=== PATIENT | male | born 1945 | race Caucasian/White ===

== ENCOUNTER 2016-07-04 06:01 | Emergency (ER) | payer MEDICARE ==
[~2016-07-04] VITALS: Ht 182.9 cm; Wt 104.5 kg
[~2016-07-04 06:01] MED LIST: ASAEC PO; ATRV10T PO; HYDR1TAB PO; IND10 PO; OMEP20TA86 PO
[2016-07-04 06:10] VITALS: BP 134/79; PULSE 111; RESP 13; O2SAT 95
--- NOTE | 2016-07-04 06:23 | ED.REPORT ---
HPI-General Illness Date of Service Jul 04, 2016 ED Provider: Jerrod Lewis MD The patient is a 70 year old male with history of hypertension who presents to the emergency department complaining of shortness of breath that has been worsening over the last 2 weeks. He has also noticed palpitations, fever, chills , and cough. He regularly feels palpitations but denies history of any known arrhythmia. He has been sick with cold-like symptoms over the last few days and is concerned he now has pneumonia or bronchitis. Nursing Notes Stated Complaint: HEART PALPITATION Chief Complaint: Dysrhythmia/Cardiac Nursing Notes Reviewed: Yes Allergies: Coded Allergies: bacitracin (Verified Allergy, Severe, 08/01/09) bacitracin zinc (Verified Allergy, Severe, 08/01/09) gramicidin D (Verified Allergy, Severe, 08/01/09) neomycin sulfate (Verified Allergy, Severe, 08/01/09) penicillin G (Verified Allergy, Severe, 08/01/09) polymyxin B (Verified Allergy, Severe, 08/01/09) polymyxin B sulfate (Verified Allergy, Severe, 08/01/09) Scheduled Aspirin-Expunged Drug, Do Not Renew! (Aspirin EC-Expunged Drug, Do Not Renew!) 325 Mg Tablet 1 PO DAILY Atorvastatin-Expunged Drug, Do Not Renew! (Atorvastatin-Expunged Drug, Do Not Renew!) 10 Mg Tablet 10 MG PO DAILY Azithromycin (Zithromax (Z-Doc)) 250 Mg Tablet 250 MG PO DIRECTED Take two tablets by mouth on day 1, then take one tablet daily on days 2 through 5. Omeprazole-Expunged Drug, Do Not Renew! (Omeprazole-Expunged Drug, Do Not Renew! ) 20 Mg Tablet.dr 20 MG PO DAILY Propranolol-Expunged Drug, Do Not Renew! (Propranolol-Expunged Drug, Do Not Renew!) 10 Mg Tab 5 MG PO BID Scheduled PRN Benzonatate (Tessalon Perle) 100 Mg Capsule 100 MG PO TID PRN PRN For Cough Hydrocod/APAP-Expunged, Do Not Renew! (VICODIN 5/500-Expunged Drug, Do Not Renew ) 1 Udtab Tablet 0.5-1 UDTAB PO Q4 PRN PRN General Time Seen by MD: 06:22 Chief Complaint Other (shortness of breath) Hx Obtained From: Patient Arrived By: Walk-in Sudden in Onset?: Yes Onset Occurred: More than a week ago... Symptom Duration: Since onset Severity: Current: Moderate Severity: Maximum: Moderate Recent Healthcare: No recent doctor visit, No recent hospitalization Similar Sx Previous: No Well's Criteria for PE Well's PE Score: 0-2 pts (low risk 3.6%) Past Medical History Past Medical History Hypertension Past Surgical History Skin graft TKA Family History Noncontributory Social History Alcohol Use: Denies alcohol use Drug Use: Denies drug use Other Social History: Local resident Ambulatory Status Independent Review of Systems Full Review of Systems Constitutional: Reports: Chills, Fever Respiratory: Reports: Non-productive cough, Shortness of breath Cardiovascular: Reports: Palpitations Complete sys rev & neg: except as marked. Physical Exam Vital Signs Vital Signs Date Time Temp Pulse Resp B/P Pulse Ox O2 Delivery O2 Flow Rate FiO2 07/04/16 07:17 93 14 127/77 94 Room Air 07/04/16 06:10 36.5 111 13 134/79 95 Room Air Initial VS: Reviewed Neck: Supple, Non-tender, Full range of motion Abdomen / GI: Soft, Non-tender, No guarding, No rebound, No distention Lymphatic: No lymphadenopathy Extremities: Vascular intact, Neuro intact, No swelling, No tenderness Skin: Warm, Dry, No cyanosis Neurologic: Alert, Oriented, Nonfocal Psychiatric: Mood/affect normal, Behavior normal, Normal thought content General/Constitutional: Awake, Alert, No acute distress, Cooperative Respiratory / Chest: Breath sounds = bilat, No respiratory distress, No rales, No rhonchi, No wheezing Coarse throughout with very mild scattered wheezing Cardiovascular: Heart rate NL, Regular rhythm, Heart sounds NL, No gallop, No murmurs, No rubs, Peripheral circulation NL, Pulses = bilaterally Interpretation & Diagnostics Lab Results Interpretation Result Diagram: 07/04/16 0617 07/04/16 0617 Test 07/04/16 06:17 White Blood Count 9.8th/mm3 (3.8-10.1) Red Blood Count 5.79mil/mm3 (4.40-5.80) Hemoglobin 17.0g/dL (13.8-17.2) Hematocrit 50.0% (41.0-50.0) Mean Corpuscular Volume 86.4fL (81-100) Mean Corpuscular Hemoglobin 29.4pg (27.0-35.0) Mean Corpuscular Hemoglobin Concent 34.0% (32.0-37.0) Red Cell Distribution Width 13.9% (12.3-15.4) Platelet Count 260bil/L (150-400) Neutrophils (%) (Auto) 49.1% (40-74) Lymphocytes (%) (Auto) 39.8% (14-46) Monocytes (%) (Auto) 7.2% (4-12) Eosinophils (%) (Auto) 3.3% (0-5) Basophils (%) (Auto) 0.3% (0-3) Hold Purple Top Tube Received (Received) Hold Blue Top Tube Received (Received) Sodium Level 143mEq/L (134-144) Potassium Level 4.3mEq/L (3.5-5.2) Chloride Level 103mEq/L (97-108) Carbon Dioxide Level 18mmol/L (18-29) Blood Urea Nitrogen 15mg/dL (8-27) Creatinine 0.92mg/dL (0.76-1.27) Estimat Glomerular Filtration Rate 87mL/min (>59) Glucose Level 126mg/dL (60-99) Calcium Level 9.4mg/dL (8.5-10.1) Magnesium Level 1.9mg/dL (1.6-2.6) Total Bilirubin 1.0mg/dL (0.0-1.2) Aspartate Amino Transf (AST/SGOT) 21U/L (0-50) Alanine Aminotransferase (ALT/SGPT) 21U/L (0-44) Alkaline Phosphatase 70U/L (25-160) Troponin T < 0.010ug/L (0.0-0.011) Total Protein 7.3g/dL (6.4-8.4) Albumin 4.1g/dL (3.4-5.0) Hold Red Top Tube Received (Received) Hold [place] Top Tube Received (Received) ECG Interpretation ECG Interpretation: Sinus tachycardia with a rate of [address] depression of less than 1 mm in V3-V6 No T wave abnormalities Inferior Q waves are present No prior available for comparison Time: 06:20 Interpreted by: ED physician X-Ray Chest Interpretation Chest Xray Interpretation: No infiltrate seen. View: Portable, 1 view Interpretation / Wet Read by: Interpret - Radiologist Re-Eval/Medical Decision Med Decision/Clinical Course In summary, the patient is a 70-year-old male with no significant past medical history other than smoking who presents to the emergency department with 2 weeks of persistent nonproductive cough in the setting of recent upper respiratory infection. He initially states that he has "racing heart" however later reports that this is his baseline. It is unclear exactly what he means by this as his heart rate is sinus and regular and he denies any history of atrial fibrillation or arrhythmia. Upon arrival, the patient is afebrile with stable vital signs and good oxygen saturation on room air. He has slightly coarse breath sounds throughout with mild wheezing. The patient was treated with a DuoNeb and reported symptom improvement. He remained with stable vital signs and no apparent distress. Chest x-ray was obtained and demonstrated slight hyperinflation and several regions of lung scarring though no convincing focal consolidation. There was no evidence of cardiomegaly or pulmonary edema. EKG was obtained and interpreted by myself as documented above. Laboratory studies reassuring as below: CBC unremarkable, CMP unremarkable, troponin negative At this time, the patient is relatively low risk for pulmonary embolism and his overall presentation is not consistent with PE. I do not feel the PE workup is indicated. Initial screening EKG and troponin are relatively unremarkable. The patient reports improvement after receiving nebulizer treatments. His overall presentation is most consistent with bronchitis/COPD. She was prescribed a course of azithromycin and provided with an albuterol inhaler and spacer. I do not feel that his symptoms are severe enough to warrant treatment with oral steroids. He will follow-up with his primary care physician in the coming week. Follow-up and return precautions were reviewed in detail the patient was discharged in good condition. Source of Hx: Old records Time of Eval: 07:58 Re-Evaluation/Progress Note: The patient is feeling better. Discussed plan for discharge. All questions were addressed. Counseled Regarding: Diagnosis, Lab results, Need for follow-up, When/why to return to ED Discharge & Departure Primary Impression: Bronchitis Additional Impressions: Tobacco abuse Cough Wheezing Palpitations Disposition: Home Discharge Condition All VS Reviewed: Yes Condition: Stable Patient Instructions: Acute Bronchitis (ED) Additional Instructions: Thank you for seeking care at the emergency room. It is difficult for us to make definitive diagnoses in the ED but we believe that you are experiencing symptoms related to bronchitis. Our primary goal today in the ED was to evaluate you for any life-threatening conditions. Your evaluation was reassuring. You will be discharged with a prescription for Tessalon pearls and azithromycin. Use the albuterol inhaler as directed. You should follow-up with your primary doctor in the next week. You should return to the ED immediately if you develop increased work of breathing, chest pain, fevers, vomiting, cough, lightheadedness, weakness or any other concerning signs or symptoms. Thank you for letting us partake in your care today. Scribe Attestation Portions of this note were transcribed by Gilda Torres. I, Dr. Lewis personally performed the history, physical exam and medical decision-making; I reviewed and confirmed the accuracy of the information in the transcribed note. Signed by: Lydia Turpin, 07/03/2015 and 0815. Jerrod Lewis MD Jul 04, 2016 06:23 Gilda Torres Jul 04, 2016 06:32
[2016-07-04 06:43] LABS: BASOPHILS % (AUTO) 0.3 % (0-3); EOSINOPHILS % (AUTO) 3.3 % (0-5); MONOCYTES % (AUTO) 7.2 % (4-12); Mean Corpuscular Hemoglobin 29.4 pg (27.0-35.0); Mean Corpuscular Volume 86.4 fL (81-100); NEUTROPHILS % (AUTO) 49.1 % (40-74); Platelet Count 260 bil/L (150-400)
[2016-07-04 07:17] VITALS: BP 127/77; PULSE 93; RESP 14; O2SAT 94
[2016-07-04 07:47] LABS: Magnesium 1.9 mg/dL (1.6-2.6)
[2016-07-04 07:49] LABS: TROPONIN T < 0.010 ug/L (0.0-0.011)
[2016-07-04] MEDS ORDERED: BENZ-12 PO (07:49)
[2016-07-04] MEDS ORDERED: Albuterol-Ipratropium 3 mL Inhalation Solution NEB ONE (07:50)
[2016-07-04] MEDS ORDERED: AZIT250T4 PO (07:52)
[2016-07-04] MEDS ORDERED: Albuterol HFA 60 Puff 8 Gm Inhaler INHALATION PRN (07:55)
[2016-07-04 08:34] VITALS: PULSE 89; RESP 16; O2SAT 96
--- NOTE | 2016-07-04 08:35 | DRSVH ---
PROCEDURE: X-RAY CHEST ONE VIEW, PORTABLE ([id number]) INDICATIONS: 70-year-old male with dysrhythmia. TECHNIQUE: One view of the chest was acquired. COMPARISON: [facility], , CHEST 1VW (PORTABLE), 12/30/2009, 19:35. [facility], , CHEST 1VW (PORTABLE), 07/31/2009, 21:27. [facility], , ABD ACUTE SERIES, 04/07, 19:29. FINDINGS: Surgical changes and devices: None. Lungs and pleura: No pleural effusions or pneumothorax. Lungs are clear. Mediastinum: Mediastinal contours appear normal. Heart size is normal. There is aortic atheroscler osis. Bones and chest wall: No suspicious bony lesions. There is thoracolumbar spine dextroscoliosis. Ove rlying soft tissues appear unremarkable. IMPRESSION: No acute cardiopulmonary disease. Dictated by: Sathya Vaughn M.D. on 07/04/2016 at 8:33 Approved by: Sathya Vaughn M.D. on 07/04/2016 at 8:34
[2016-07-04 09:24] VITALS: BP 116/81; PULSE 92; RESP 16; O2SAT 96
== END 2016-07-04 09:25 | disposition home or self-care (01) ==
LOC: SED 06:01
DX: J40 Bronchitis, not specified as acute or chronic (principal); R06.2 Wheezing; R00.2 Palpitations; R05 Cough; I10 Essential (primary) hypertension; Z72.0 Tobacco use; Z88.1 Allergy status to other antibiotic agents
CPT/HCPCS: 36415; 71010; 80053; 83735; 84484; 85025; 93005; 94640; 94664; 99285; J7620

== ENCOUNTER 2016-11-09 13:37 | Inpatient (IN) | payer MEDICARE ==
[~2016-11-09] VITALS: Ht 182.9 cm; Wt 105.0 kg
[~2016-11-09 13:37] MED LIST changes: +AZIT250T4 PO; +BENZ-12 PO
[2016-11-09 13:42] VITALS: BP 156/94; PULSE 89; RESP 20; O2SAT 99
--- NOTE | 2016-11-09 13:48 | ED.REPORT ---
HPI-Chest Pain 40 and Over Date of Service Nov 09, 2016 ED Provider: Rashi Oseguera MD A 71 year old male with a history of hypertension and high cholesterol presents to the ED complaining of chest pain. The pt began experiencing pain across his chest and radiating into his bilateral upper arms approximately 20 minutes prior to arrival while walking. This was accompanied by lightheadedness, dizziness, and mild difficulty breathing, and lasted for five minutes. The pt felt like he was "about to pass out" and had to hold onto a cabinet for balance. He denies nausea or vomiting, as well as any history of [place]. He has experienced two similar episodes in the last two weeks, both of which occurred during activity. The pt has a history of hypertension but has not taking his medication for the last week. He denies any recent heavy lifting. Nursing Notes Stated Complaint: CHEST PAIN,CANT FEEL ARMS,LIGHT HEADED,DIZZY Chief Complaint: Chest Pain Nursing Notes Reviewed: Yes Allergies: Coded Allergies: bacitracin (Verified Allergy, Severe, 11/09/16) bacitracin zinc (Verified Allergy, Severe, 11/09/16) gramicidin D (Verified Allergy, Severe, 11/09/16) neomycin sulfate (Verified Allergy, Severe, 11/09/16) penicillin G (Verified Allergy, Severe, 11/09/16) polymyxin B (Verified Allergy, Severe, 11/09/16) polymyxin B sulfate (Verified Allergy, Severe, 11/09/16) Scheduled Aspirin (Aspirin) 81 Mg Tablet 81 MG PO DAILY Atorvastatin (Lipitor) 10 Mg Tab 10 MG PO DAILY Propranolol HCl (Propranolol HCl) 10 Mg Tablet 5 MG PO BID General Time Seen by MD: 13:46 Chief Complaint Chest pain Hx Obtained From: Patient Arrived By: Walk-in Sudden in Onset?: Yes Onset Occurred: 16 - 30 minutes ago Symptom Duration: 1 - 15 minutes Recent Healthcare: No recent hospitalization, Recent doctor visit Similar Sx Previous: Yes Past Medical History Past Medical History Hypertension Pneumonia Arthritis High cholesterol Past Surgical History Skin graft TKA Family History Noncontributory Smoking History Former Smoker Social History Alcohol Use: Denies alcohol use Drug Use: Denies drug use Other Social History: Local resident Ambulatory Status Independent Review of Systems Review of Systems Note: mild difficulty breathing near syncope Respiratory: Denies: Non-productive cough Cardiovascular: Reports: Chest pain GI: Denies: Abdominal pain, Nausea, Vomiting Musculoskeletal: Denies: Back pain, Neck pain Neurologic: Reports: Dizziness, Lightheaded Complete sys rev & neg: except as marked. Physical Exam Initial Vital Signs Vital Signs (First) Date Time Temp Pulse Resp B/P Pulse Ox O2 Delivery O2 Flow Rate FiO2 11/09/16 13:42 36.4 89 20 156/94 99 Room Air Initial VS: Reviewed General/Constitutional: Awake, Alert Respiratory / Chest: Atraumatic, Breath sounds NL, Breath sounds = bilat, No respiratory distress Cardiovascular: Heart rate NL, Regular rhythm, Heart sounds NL Abdomen: Atraumatic, Soft, Non-tender Neck: Atraumatic, Supple, Full range of motion Back: Atraumatic, Full range of motion Lower Extremity / Pelvis / MS: Atraumatic, Full range of motion Skin: Atraumatic, Color NL, No rash, Warm, Dry Neurologic: Oriented X3, Speech NL, No motor deficits, No sensory deficits Psychiatric: Affect NL, Mood NL Head / Eyes: Atraumatic, Normocephalic, PERRL, EOMI ENT: Atraumatic, Airway patent, Mucous membranes moist Upper Extremity / MS: Atraumatic, Full range of motion Interpretation & Diagnostics Lab Results Interpretation Result Diagram: 11/10/16 0535 11/10/16 0535 Test 11/09/16 13:55 Neutrophils (%) (Auto) 47.1% (40-74) Lymphocytes (%) (Auto) 43.1% (14-46) Monocytes (%) (Auto) 6.9% (4-12) Eosinophils (%) (Auto) 2.3% (0-5) Basophils (%) (Auto) 0.4% (0-3) Hemoglobin A1c 7.2% (4.8-5.6) Total Bilirubin 0.4mg/dL (0.0-1.2) Aspartate Amino Transf (AST/SGOT) 29U/L (0-50) Alanine Aminotransferase (ALT/SGPT) 37U/L (0-44) Alkaline Phosphatase 80U/L (25-160) Total Protein 7.2g/dL (6.4-8.4) Albumin 4.0g/dL (3.4-5.0) Hold [place] Top Tube Received (Received) ECG Interpretation ECG Interpretation: normal sinus rhythm with a rate of [address] elevations Q waves in 3, aVF, , VII unchanged from previous dated 07/04/2016 Time: 13:47 Interpreted by: ED physician X-Ray Chest Interpretation Chest Xray Interpretation: IMPRESSION: No acute cardiopulmonary disease. Dictated by: Sathya Vaughn M.D. on 11/09/2016 at 13:31 Approved by: Sathya Vaughn M.D. on 11/09/2016 at 13:32 Interpretation / Wet Read by: Interpret - Radiologist Re-Eval/Medical Decision Med Decision/Clinical Course 71-year-old male history of hypertension, hypercholesterolemia, smoker presenting with chest pain 20 minutes prior to arrival. His circumflex first troponins negative. No acute changes on EKG though with questionable depressions in V5 and V6. Reviewed with public administration teacher recommended admission and trending. Admitted for ACS rule out. Heart score 5. Given Aspirin. Source of Hx: Old records Time of Eval: 14:24 Re-Evaluation/Progress Note: Pt rechecked, who is comfortable. Additional history is obtained. Consultation : Referral / Consult Name: Aidee Guardado MD Consulted With: Cardiology Call Returned at: 14:[address]: Agrees with eval, Agrees with plan Note: Spoke with Dr. Guardado, cardiology, regarding pt's case. Dr. Guardado agrees to review pt's records. Counseled Regarding: Diagnosis, Lab results Discharge & Departure Primary Impression: Chest pain Chest pain type: unspecified Qualified Code: R07.9 - Chest pain, unspecified Disposition: ADMITTED TO HOSPITAL Discharge Condition All VS Reviewed: Yes Condition: Stable [facility]errals: [facility] Scribe Attestation Portions of this note were transcribed by Roger Gill. I, Dr. Oseguera personally performed the history, physical exam and medical decision-making; I reviewed and confirmed the accuracy of the information in the transcribed note. Signed by: Lydia Frost, 11/09/16 and 3426. copies to: [facility] Rashi Oseguera MD Nov 09, 2016 13:48 ROGER GILL Nov 09, 2016 14:02 4.0g/dL (3.4-5.0) Hold [place] Top Tube Received (Received) ECG Interpretation ECG Interpretation: normal sinus rhythm with a rate of [address] elevations Q waves in 3, aVF, , VII unchanged from previous dated 07/04/2016 Time: 13:47 Interpreted by: ED physician X-Ray Chest Interpretation Chest Xray Interpretation: IMPRESSION: No acute cardiopulmonary disease. Dictated by: Sathya Vaughn M.D. on 11/09/2016 at 13:31 Approved by: Sathya Vaughn M.D. on 11/09/2016 at 13:32 Interpretation / Wet Read by: Interpret - Radiologist Re-Eval/Medical Decision Source of Hx: Old records Time of Eval: 14:24 Re-Evaluation/Progress Note: Pt rechecked, who is comfortable. Additional history is obtained. Consultation : Referral / Consult Name: Aidee Guardado MD Consulted With: Cardiology Call Returned at: 14:[address]: Agrees with eval, Agrees with plan Note: Spoke with Dr. Guardado, cardiology, regarding pt's case. Dr. Guardado agrees to review pt's records. Counseled Regarding: Diagnosis, Lab results Discharge & Departure Primary Impression: Chest pain Chest pain type: unspecified Qualified Code: R07.9 - Chest pain, unspecified Disposition: ADMITTED TO HOSPITAL Discharge Condition All VS Reviewed: Yes Condition: Stable [facility] Attestation Portions of this note were transcribed by Roger Gill. I, Dr. Oseguera personally performed the history, physical exam and medical decision-making; I reviewed and confirmed the accuracy of the information in the transcribed note. Signed by: Lydia Frost, 11/09/16 and 1825. copies to: [facility] Rashi Oseguera MD Nov 09, 2016 13:48 ROGER GILL Nov 09, 2016 14:02 All VS Reviewed: Yes Condition: Stable [facility] Att[facility] Portions of this note were transcribed by Roger Gill. IDr. Oseguera personally performed the history, physical exam and medical decision-making; I reviewed and confirmed the accuracy of the information in the transcribed note. Signed by: Lydia Frost, 11/09/16 and 140. copies to: [facility] Rashi Oseguera MD Nov 09, 2016 13:48 ROGER GILL Nov 09, 2016 14:02
[2016-11-09 14:08] LABS: BASOPHILS % (AUTO) 0.4 % (0-3); EOSINOPHILS % (AUTO) 2.3 % (0-5); MONOCYTES % (AUTO) 6.9 % (4-12); Mean Corpuscular Hemoglobin 29.5 pg (27.0-35.0); Mean Corpuscular Volume 88.1 fL (81-100); NEUTROPHILS % (AUTO) 47.1 % (40-74); Platelet Count 214 bil/L (150-400)
[2016-11-09 14:33] LABS: TROPONIN T < 0.010 ug/L (0.0-0.011)
--- NOTE | 2016-11-09 14:33 | DRSVH ---
PROCEDURE: X-RAY CHEST ONE VIEW, PORTABLE ([id number]) INDICATIONS: 71 year-old male with chest pain for 1.5 days. TECHNIQUE: One view of the chest was acquired. COMPARISON: [facility], CR, XR CHEST 1VW (PORTABLE), 07/04/2016, 6:32. [facility], CR, CHEST 1VW (PORTABLE), 12/30/2009, 19:35. [facility], CR, CHEST 1VW (PORTABLE), 07/31/2009, 21:27. FINDINGS: Surgical changes and devices: None. Lungs and pleura: No pleural effusions or pneumothorax. Lungs are clear. Mediastinum: Mediastinal contours appear normal. Heart size is normal. There is aortic atheroscler osis. Bones and chest wall: No suspicious bony lesions. Overlying soft tissues appear unremarkable. IMPRESSION: No acute cardiopulmonary disease. Dictated by: Sathya Vaughn M.D. on 11/09/2016 at 13:31 Approved by: Sathya Vaughn M.D. on 11/09/2016 at 13:32
[2016-11-09 14:38] LABS: Magnesium 1.8 mg/dL (1.6-2.6)
[2016-11-09] MEDS ORDERED: Ondansetron 2 mg/mL 2 mL Inj IVPUSH PRN ×2 (15:35→18:50)
[2016-11-09] MEDS ORDERED: Alum-Mag Hydrox-Simeth 30 mL Suspension PO PRN (15:35)
[2016-11-09 15:38] VITALS: BP 156/82; PULSE 98; RESP 14; O2SAT 97
[2016-11-09] MEDS ORDERED: PROP10TA8 PO (15:46)
[2016-11-09] MEDS ORDERED: ASPI-973 PO (15:46)
[2016-11-09] MEDS ORDERED: ATRV10T PO (15:55)
[2016-11-09 17:22] VITALS: BP 180/88; PULSE 66; RESP 18; O2SAT 99
[2016-11-09 18:10] VITALS: BP 167/86
--- NOTE | 2016-11-09 18:20 | NUR ---
admit pt transferred to [facility] via [facility]. pt transferred himself from [facility] to bed. pt states that he is in no pain, denies chest pain, denies SOB. Tele applied. Admit assessment done, in room.
[2016-11-09] MEDS ORDERED: Dextrose 10% 250 ML IV PRN (18:50)
[2016-11-09] MEDS ORDERED: Polyethylene Glycol (PEG) 17 Gm Powder PO PRN (18:50)
--- NOTE | 2016-11-09 19:04 | PCM.HPMED ---
Subjective Date of Service Nov 09, 2016 Primary Provider: Admitting Physician: Hansel Rincon Primary Care Physician: Tato Attending Physician: Hansel Rincon Chief Complaint: near syncope, chest pain History of Present Illness: 71 year old male with a history of hypertension and high cholesterol presents to the ED complaining of chest pain and near syncope. He had been in his usual of state of health until earlier today around noon time while at home he walked to his car and all off a sudden felt significantly lightheaded. He sat down and after a while he felt improved. He then drove to [place] and after dropping of a letter he walked back to his car at which time he felt significant pain in both his arms radiating across his chest. This lasted 5 minutes and his symptoms resolved before he drove himself to the ED. He has experienced two similar episodes in the last two weeks, both of which occurred during activity. The pt has a history of hypertension but has not been taking his medication for the last week. Review of Systems: Constitutional: Negative, except as otherwise mentioned in the history above. Ophthalmologic: Negative, except as otherwise mentioned in the history above. Cardiovascular: Negative, except as otherwise mentioned in the history above. Respiratory: Negative, except as otherwise mentioned in the history above. Gastrointestinal: Negative, except as otherwise mentioned in the history above. Genitourinary: Negative, except as otherwise mentioned in the history above. Musculoskeletal: Negative, except as otherwise mentioned in the history above. Neurological: Negative, except as otherwise mentioned in the history above. Psychiatric: Negative, except as otherwise mentioned in the history above. Hematologic/Lymphatic: Negative, except as otherwise mentioned in the history above. Allergic/Immunologic: Negative, except as otherwise mentioned in the history above. Allergies Coded Allergies: bacitracin (Verified Allergy, Severe, 11/09/16) bacitracin zinc (Verified Allergy, Severe, 11/09/16) gramicidin D (Verified Allergy, Severe, 11/09/16) neomycin sulfate (Verified Allergy, Severe, 11/09/16) penicillin G (Verified Allergy, Severe, 11/09/16) polymyxin B (Verified Allergy, Severe, 11/09/16) polymyxin B sulfate (Verified Allergy, Severe, 11/09/16) Home Medications Aspirin (Aspirin) 81 Mg Tablet 81 MG PO DAILY Propranolol HCl (Propranolol HCl) 10 Mg Tablet 5 MG PO BID Lipitor 10mg PO DAILY Exam Vital Signs & I/O Vital Sign- Last 8 Hours Date Time Temp Pulse Resp B/P Pulse Ox O2 Delivery O2 Flow Rate FiO2 11/09/16 18:10 167/86 11/09/16 17:22 36.9 66 18 180/88 99 Room Air 11/09/16 15:38 98 14 156/82 97 Room Air 11/09/16 13:42 36.4 89 20 156/94 99 Room Air Lab & Micro Results Laboratory Tests Test 11/09/16 13:55 White Blood Count 9.8th/mm3 (3.8-10.1) Red Blood Count 5.63mil/mm3 (4.40-5.80) Hemoglobin 16.6g/dL (13.8-17.2) Hematocrit 49.6% (41.0-50.0) Mean Corpuscular Volume 88.1fL (81-100) Mean Corpuscular Hemoglobin 29.5pg (27.0-35.0) Mean Corpuscular Hemoglobin Concent 33.5% (32.0-37.0) Red Cell Distribution Width 13.5% (12.3-15.4) Platelet Count 214bil/L (150-400) Neutrophils (%) (Auto) 47.1% (40-74) Lymphocytes (%) (Auto) 43.1% (14-46) Monocytes (%) (Auto) 6.9% (4-12) Eosinophils (%) (Auto) 2.3% (0-5) Basophils (%) (Auto) 0.4% (0-3) Sodium Level 143mEq/L (134-144) Potassium Level 3.9mEq/L (3.5-5.2) Chloride Level 107mEq/L (97-108) Carbon Dioxide Level 23mmol/L (18-29) Blood Urea Nitrogen 13mg/dL (8-27) Creatinine 1.15mg/dL (0.76-1.27) Estimat Glomerular Filtration Rate 67mL/min (>59) Glucose Level 151mg/dL (60-99) Calcium Level 9.6mg/dL (8.5-10.1) Magnesium Level 1.8mg/dL (1.6-2.6) Total Bilirubin 0.4mg/dL (0.0-1.2) Aspartate Amino Transf (AST/SGOT) 29U/L (0-50) Alanine Aminotransferase (ALT/SGPT) 37U/L (0-44) Alkaline Phosphatase 80U/L (25-160) Troponin T < 0.010ug/L (0.0-0.011) Total Protein 7.2g/dL (6.4-8.4) Albumin 4.0g/dL (3.4-5.0) Hold Beckham Top Tube Received (Received) Result Diagram: 11/09/16 1355 11/09/16 1355 PMH Hypertension Arthritis High cholesterol Borderline diabetes Surgical History Skin graft TKA Family History Father with CO in his 50's Social History Hx Alcohol Use: Yes ("occasional") Hx Substance Use: No Hx Tobacco Use: Yes Smoking Status: Former Smoker (quit about one year ago) Exam Vital Signs Vital Sign - Last Date Time Temp Pulse Resp B/P Pulse Ox O2 Delivery O2 Flow Rate FiO2 11/09/16 18:10 167/86 11/09/16 17:22 36.9 66 18 99 Room Air Lab and Diagnostics Result Diagram: 11/09/16 1355 11/09/16 1355 X-Rays, CTs and MRIs Date of Service: 11/09/16 1342 PROCEDURE: X-RAY CHEST ONE VIEW, PORTABLE ([id number]) IMPRESSION: No acute cardiopulmonary disease. Dictated by: Sathya Vaughn M.D. on 11/09/2016 at 13:31 Approved by: Sathya Vaughn M.D. on 11/09/2016 at 13:32 12-lead ECG NSR @ [address] elevation/depression Assessment & Plan 71 year old male with a history of hypertension and high cholesterol presents to the ED complaining of chest pain and near syncope. # Acute chest pain, present on admission. - Tele - Rule out CO by cycling cardiac enzymes - ASA daily - Lipitor daily - Check fasting lipid panel - Echo - Stress test in am if CO ruled out # Hypertension - Continue with home dose Propranolol and titrate as needed # Reported borderline diabetes - ISS - Check HgA1C # Hyperlipidemia - Continue Lipitor - Fasting lipid panel # Acute near syncope - Workup as noted above Expected length of hospital stay is less than 2 midnights GI Prophylaxis: Not indicated VTE Prophylaxis: Sub-Q Heparin (Unfractionated) Resuscitation Status: CPR: Attempt Resuscitation (discussed and verified with patient) Time spent 60 min Hansel Rincon Nov 09, 2016 19:04
[2016-11-09 20:00] VITALS: PULSE 72
[2016-11-09 20:41] LABS: APPEARANCE,URINE CLEAR (CLEAR,HAZY); COLOR,URINE YELLOW (YELLOW); OCCULT BLOOD,URINE NEGATIVE (NEGATIVE); UROBILINOGEN,URINE NORMAL (NORMAL)
[2016-11-09 20:46] VITALS: BP 124/67; PULSE 65; RESP 18; O2SAT 98
[2016-11-09] MEDS: Insulin Human REGular 300 Unit/3 mL Inj SUBQ SCH (21:49)
[2016-11-10] VITALS (7 sets, daily range): BP systolic 126–172; BP diastolic 69–87; PULSE 55–67; RESP 18; O2SAT 96–100
[2016-11-10] MEDS: Heparin 5,000 Unit/mL Inj SUBQ SCH ×2 (01:23→08:38)
[2016-11-10 05:57] LABS: Mean Corpuscular Hemoglobin 29.2 pg (27.0-35.0); Mean Corpuscular Volume 87.5 fL (81-100)
[2016-11-10 06:17] LABS: INR 0.97 ratio
[2016-11-10 06:18] LABS: Magnesium 1.7 mg/dL (1.6-2.6)
[2016-11-10] MEDS: Insulin Human REGular 300 Unit/3 mL Inj SUBQ SCH ×4 (07:30→20:24)
--- NOTE | 2016-11-10 09:07 | NUR ---
Social Work-initial assessment/ readiness for discharge: Data:See initial assessment. Pt is a 71 y/o male who was admitted on 11/09/16 for chest pain per H&P. Pt's insurance is [employer] and PCP is not listed. EMR reviewed. RIP met with pt at bedside to discuss discharge planning, SW role explained. Pt is alert and oriented x3. Pt reside sat home alone in a single level home where he remains independent with ADls. Pt does not use any DME and drives. Pt has had HH in the past, post knee surgery, but cannot remember the name. Pt has no SNF history. Pt has no joint terminal attack controller care insurance or VA benefits. SW discussed DPOA/ advanced directive, pt confirms he has not completed this and is not interested in any information at this time. RIP discussed lack of PCP, pt states he has been assigned one, but his appointment is not until December. Pt states his friend Regulo will provide transport home when medically stable and declined SW calling his friend. Per RN notes, pt has been up independent in his room. SW provided phone number and plan on white board in room. No anticipated discharge needs. SW will continue to follow if needs arise. Assessment:Pt who is independent at baseline. Plan:Pt to discharge home when medically stable via POV. No anticipated discharge needs. SW will continue to follow if needs arise. DONNA Webb Addendum: 11/10/16 at 0912 by ELISA GALO Amended: Links added.
[2016-11-10] MEDS ORDERED: Heparin 25K Unit/500mL 0.45 NS 25,000 UNIT in IV Premix 1 EACH IV SCH (12:15)
--- NOTE | 2016-11-10 13:56 | NUR ---
Case Management: IMM delivered and explained to patient. Signed original placed in chart. Copy left at bedside. Ivonne Hdez RN
--- NOTE | 2016-11-10 15:01 | PCM.PNMED ---
Subjective Date of Service Nov 10, 2016 Subjective Denies any new issues/complaints. no further CP. No SOB Exam Vital Signs Vital Sign - Last Date Time Temp Pulse Resp B/P Pulse Ox O2 Delivery O2 Flow Rate FiO2 11/10/16 14:45 36.4 59 18 172/85 96 Room Air Intake and Output 11/09/16 11/09/16 11/10/16 Cumulative From/Thru 15:00 23:00 07:00 11/09/16 13:42 - 11/10/16 06:37 Intake Total 320 ml 350 ml 670 ml Output Total 775 ml 775 ml Balance 320 ml -425 ml -105 ml Intake Oral 320 ml 350 ml 670 ml Output Urine Total 775 ml 775 ml General: Alert, Oriented X3, Cooperative, No Acute Distress Head: Normal Eyes: Scleral Anicteric Nose: Mucous Membr Moist/[place] Mouth: Mucous Membr Moist/[place] Neck: Supple Chest & Lungs: Clear to auscultation & percussion Cardiovascular: Regular Rate/Rhythm Pulses: NL carotid, radial, femoral, DP, PT Abdomen: Non-tender, Non-distended, Normoactive bowel tones, Soft Extremities: No cyanosis/clubbing/edma bilat Neurological: Grossly Neurologically Intact, Normal Speech IVs and Medications Medications Reviewed: Medications were reviewed in detail Lab and Diagnostics Result Diagram: 11/10/16 0535 11/10/16 0535 X-Rays, CTs and MRIs Date of Service: 11/09/16 1342 PROCEDURE: X-RAY CHEST ONE VIEW, PORTABLE ([id number]) IMPRESSION: No acute cardiopulmonary disease. Dictated by: Sathya Vaughn M.D. on 11/09/2016 at 13:31 Approved by: Sathya Vaughn M.D. on 11/09/2016 at 13:32 12-lead ECG NSR @ [address] elevation/depression Assessment & Plan 71 year old male with a history of hypertension and high cholesterol presents to the ED complaining of chest pain and near syncope. # Acute NSTEI. present on admission - Tele - Trop peaked at 0.056 on 11/09 and now back to normal - ASA daily - Lipitor daily - Followup pending Echo - Cardiology consulted this morning. Will followup with recs - Stress test cancelled - Start Heparin drip - Tentative plan is for cath in am # Hypertension. Poorly controlled - Continue with home dose Propranolol and titrate as needed - Will start low dose Lisinopril # Reported borderline diabetes - ISS - HgA1C 7.2 # Hyperlipidemia - Continue Lipitor - Fasting lipid: Chol 193, LDL 116 # Acute near syncope - Workup as noted above Dispo: 2-3 days GI Prophylaxis: Not indicated VTE Prophylaxis: Sub-Q Heparin (Unfractionated) Resuscitation Status: CPR: Attempt Resuscitation (discussed and verified with patient) Hansel Rincon Nov 10, 2016 15:01
--- NOTE | 2016-11-10 15:32 | CONS ---
[address] [address] CONSULTATION REPORT PATIENT: DOUG HERNANDEZ : 1945 MR#: [id number] ADMIT: 11/09/2016 JOB ID: [id number] DATE OF SERVICE: 11/10/2016 CARDIOLOGY CONSULTATION: CHIEF CONCERN: Hospital team to consult on this patient given elevated troponin. HISTORY OF PRESENT ILLNESS: The patient is a 71-year-old man with past medical history significant for hypertension and hyperlipidemia. He tells me that over the past couple of months he has been having intermittent lightheaded spells. He says, in fact, he was seen here in the ED after one of these episodes. He was evaluated and was sent home. With this current event, he was walking along where he suddenly felt another episode of lightheadedness. He thought he might pass out as he also developed a pain rate coming from his right to his left arm. This was short-lived and resolved, but he went to the ED again. In the ED he had an initial negative troponin. He had an EKG that looked very similar to previous EKGs. Since he has been admitted, his troponins have gone up from 0.014 to 0.056. He is not complaining of any chest pain, lightheadedness, dizziness or increased shortness of breath at this time. In fact he tells me that he is hungry. Other studies performed in the ED included a chest x-ray that showed no acute cardiopulmonary disease. PAST MEDICAL HISTORY/PROBLEM LIST: 1. History of hypertension. 2. Hyperlipidemia. HOME MEDICATIONS: Include: 1. Aspirin 81 mg a day. 2. Propranolol 10 mg tablets, 5 mg b.i.d. 3. Lipitor 10 mg a day. ALLERGIES: Are multiple including BACITRACIN, NEOMYCIN, PENICILLIN G, POLYMYXIN. SOCIAL HISTORY: He quit smoking about a year ago. Occasional alcohol use. FAMILY HISTORY: Father had TN in his 50s. REVIEW OF SYSTEMS: Overall health: No fevers, chills, night sweats, or weight loss. GI: No problems with ulcers or blood in his stool. : No dysuria, hematuria. Pulmonary: No problems with lungs. No increased shortness of breath. He might have felt a little bit of short of breath with this event yesterday. Endocrine: No heat or cold intolerance. Cardiac: Per HPI. He says he has episodes where he will feel his heart goes racing. Sometimes this is at night. He cannot recall if his heart was racing with this episode, however. Skin: No breakdown appreciated. Neuro: No chronic headaches. Heme: No easy bruising or bleeding. Musculoskeletal: He has some neck stiffness right now. Psych: No acute issues. ENT: No difficultly swallowing. No sore throat. All review of systems in a 12-point review of systems are negative. PHYSICAL EXAMINATION: Blood pressure is 156/76, heart rate is 56. He is afebrile. Sats are 99% on room air. General: In no acute distress. Speaking in full sentences without pressured breath. Head and neck examination: Normocephalic, atraumatic. Neck: I do not appreciate obvious JV distention. No obvious carotid bruits appreciated. Heart examination: Regular rate and rhythm without murmurs, gallops, rubs appreciated. Lungs sound clear anteriorly. Abdomen: Soft. Back: no CVA TTP Extremities: Warm, no appreciable edema, 1-2+ distal pulses. Skin without breakdown appreciated. Neuro: Alert and oriented x3. Gait is not tested. Psych: Appropriate mood and affect. ENT: Missing teeth front but mucous membranes moist. Ophtho: Vision grossly intact. LABORATORY AND DIAGNOSTIC STUDIES: EKG shows sinus rhythm with occasional PAC. There are some nonspecific ST changes seen which were seen on a previous EKG. LABORATORIES: Show a troponin is now point going from 0.014 to 0.056. Sodium 141, potassium 4.1, respectively. BUN and creatinine 14 and 0.82. Triglycerides 235, LDL 116, HDL 47. Hematology shows a white count 8.7, H and H 15.9 and 47.7, platelets of 200,000. A chest x-ray, as noted. IMPRESSION: The patient has had intermittent lightheaded spells over the past couple of months. He was seen in the ED back in June. Apparently at that time they thought he was complaining of shortness of breath. He was given treatment for bronchitis at that time. EKG looked about the same at that time as well. With his current admission, he developed some arm discomfort that radiated from the right to the left. This was transient in nature and was associated possibly with some increased shortness of breath but nothing significant. No diaphoresis, nausea, vomiting. He did not notice that he had any palpitations at the time. PLANS: 1. Until we sort things out, I think we should put him on a heparin drip. Continue him on aspirin and statin. He is on a beta cosme. 2. Will get an echocardiogram to evaluate LV function, look for wall motion abnormalities and also to look at the right ventricle given he had near syncope. 3. It is possible that he may have being having arrhythmias which precipitated the symptoms and led to the transient episode of chest pain. The echocardiogram will be helpful as well as further monitoring. 4. Also we need to consider pulmonary embolism as a cause of the syncopal event although speaking with him he said he has had some intermittent dizziness for the past couple of months. I spent 35 minutes reviewing the patient's chart, discussing the case with the family and the patient, making recommendations. IMTIAZ
[2016-11-10] MEDS: Alum-Mag Hydrox-Simeth 30 mL Suspension PO PRN (15:44)
--- NOTE | 2016-11-10 15:59 | DRSVH ---
[facility] [address] [place] [address] Echocardiogram Report Name: DOUG HERNANDEZ Date: 11/10/2016 Height: 72 in Hospital Exam Location: [facility] Weight: 235 lb Gender: Male BSA: 2.3 m2 : 1945 Age: 71 yrs BP: 145/77 mm Hg Reason For Study: Chest pain Ordering Physician: [facility] Performed By: Gray Shell Referring Physician: BENITO CHAVEZ Interpretation Summary 1. Mildly dilated left ventricle with mildly increased wall thickness and an estimated EF of 50% 2. Grossly normal right ventricular size with low normal systolic function. 3. No evidence for significant valvular pathology There is no old study for comparison Procedure: A two-dimensional transthoracic echocardiogram with color flow and Doppler was performed. The study quality was technically adequate. A contrast injection of Definity was performed to improve assessment of LV function. There is no prior echocardiogram noted for this patient. Left Ventricle: The left ventricle is mildly dilated. There is mild concentric left ventricular hypertrophy. The estimated EF is 50%. Possible hypokinesis of the distal anterior septum. Right Ventricle: The right ventricle is grossly normal size. Right ventricular systolic function is at the lower limits of normal. Atria: The left atrium is borderline dilated. Right atrial size is normal. There is no Doppler evidence for an interatrial shunt. Mitral Valve: The leaflets appear thin with normal excursion. There is mild to moderate mitral regurgitation. Aortic Valve: The aortic valve is trileaflet. The aortic valve opens well. No aortic regurgitation is present. Tricuspid Valve: The tricuspid valve is normal. Pulmonary artery pressures cannot be estimated because of the lack of a measurable TR jet velocity. Pulmonic Valve: The pulmonic valve is not well seen, but is grossly normal. There is mild to moderate pulmonic regurgitation. Great Vessels: The aortic root is normal size. The dimensions of the ascending aorta are normal. The IVC is of normal diameter and collapses greater than 50% with a sniff. This suggests a low right atrial pressure of 3 mm Hg. Pericardium/ Pleura There is no pericardial effusion. There is no pleural effusion. MMode/2D Measurements & Calculations LVIDd LA A2 area RA long axis: 5.3 cm LVOT diam: 2.3 cm : 6.0 cm AoV Openin.6 cm LVIDs RA area: 18.8 cm Ao root diam: 3.5 cm : 5.5 cm LA A4 area RA vol: 56.8 ml asc Aorta Diam: 3.2 cm FS: 8.9 % RA : 24.9 ml/m2 EPSS: 1.5 cm LA length (vol) IVSd: 1.1 cm LVPWd LA vol: 73.9 ml : 1.2 cm LA vol index : 32.4 ml/m2 LVAd ap4 LVAd ap2 LV isaac. diameter/BSA LV sys. diameter/BSA : 24.6 2m : 18.0 cm (cm/m^2): 2.6 (cm/m^2): 2.4 LVLd ap2: 6.2 cm EDV(MOD-sp2) EDV(sp2-el) ESV(MOD-sp2) EF(MOD-sp2) TAPSE : 1.5 cm Doppler Measurements & Calculations Ao V2 max: 117.8 cm/sec MV E max shilo MV E/A: 0.54 PA V2 max Ao max P.6 mmHg : 29.8 cm/sec Med Peak E' Shilo : 73.3 cm/sec Ao mean P.2 mmHg MV A max shilo PA mean PG LVOT Max Shilo : 55.2 cm/sec E/E' med: 8.3 : 1.2 mmHg : 55.2 cm/sec Lat Peak E' Shilo FRANKLIN(I,D): 1.9 cm sev ratio: 0.46 E/E' lat: 8.6 E/e' average: 8.4 MV dec time: 0.30 sec Ao V2 mean LV V1 max PG PA V2 mean : 86.1 cm/sec : 53.2 cm/sec Ao V2 VTI LV V1 VTI: 11.6 cmPA pr(Accel) : 28.9 mmHg FRANKLIN(V,D): 2.0 cm2 FRANKLIN indexed to BSA (cm^2/m^2): 0.85 Reading Physician:03:58 PM
--- NOTE | 2016-11-10 17:53 | NUR ---
Cardiac Near syncope with chest pain admission, chest pain HS with correlating trop levels. Cardiology consult. Heparin gtt per cardiac protocol initiated. Plan is for hearth cath in AM. Cardiology planning on returning in AM for consent.
--- NOTE | 2016-11-10 20:00 | DRSVH ---
PROCEDURE: CT ANGIO CHEST PULMONARY EMBOLISM ([id number]) INDICATIONS: 71 year-old man with chest pain. TECHNIQUE: After the administration of intravenous contrast, 2 mm thick sections acquired from the pulmonary api raf to the posterior costophrenic angles. 3-dimensional maximum intensity projection (MIP) coronal a nd sagittal reformats were then acquired through the thorax. For radiation dose reduction, the follo wing was used: automated exposure control, adjustment of mA and/or kV according to patient size. COMPARISON: [facility] , CT, CHEST W/O CONTRAST, 01/20/2010, 7:59. [facility], CT, CHEST ANGIO-PE, 07/31/2009, 23:36. FINDINGS: Image quality: Excellent. Pulmonary arteries: Pulmonary arteries are normal in size, and demonstrate no intraluminal filling d efects to suggest central pulmonary embolism. Lungs and pleura: There is a 9 mm groundglass nodule in the right minor fissure (series 5 image 28), unchanged in size. A 9 mm nodule in the left upper lobe (series 5 image 15) appears slightly increas ed in size (previously measured 6 mm on 01/20/2010). No pleural effusions or pneumothorax. Central an d peripheral airways are patent. Mediastinum: Heart size is normal, without pericardial effusion. There is a 1 cm precarinal lymph no de, and a 1.5 cm right hilar lymph node; both are unchanged in size compared to 07/31/2009. Thoracic aorta is normal in caliber and enhancement. Esophagus is normal in caliber, without hiatal hernia. Bones and chest wall: No suspicious bony lesions. Ribs and thoracic spine appear intact throughout. Thyroid gland is normal. No axillary or supraclavicular adenopathy. Abdomen: Visualized upper abdominal solid organs appear normal in the early arterial phase of enhanc ement. Note is made of cholecystectomy. IMPRESSION: 1. No evidence for central pulmonary embolism. 2. Stable in size of 9 mm nodule in the right major fissure. 3. Slight interval enlargement of a left upper lobe nodule. Given very low rate growth (from 6 mm on 01/20/2010 to 9 mm on 11/10/2016), a benign etiology is still favored. 4. Mildly enlarged mediastinal and right hilar lymph nodes are stable, most likely reactive. Dictated by: Angeline Tovar M.D. on 11/10/2016 at 19:45 Approved by: Angeline Tovar M.D. on 11/10/2016 at 19:58
[2016-11-10] MEDS: Heparin 5,000 Unit/mL Inj IVPUSH PRN (20:15)
[2016-11-11] VITALS (12 sets, daily range): BP systolic 110–164; BP diastolic 66–83; PULSE 50–80; RESP 16–20; O2SAT 95–99
[2016-11-11] MEDS: Heparin 5,000 Unit/mL Inj IVPUSH PRN (03:18)
--- NOTE | 2016-11-11 05:53 | NUR ---
Heparin gtt Heparin gtt infusing per protocol. non-therapeutic this shift. no s/s of bleeding. patient denies chest pain. patient has been NPO since Midnight for possible stress test in am. beta-cosme held over night. will continue to monitor.
[2016-11-11] MEDS: Insulin Human REGular 300 Unit/3 mL Inj SUBQ SCH ×4 (07:30→20:48)
--- NOTE | 2016-11-11 08:40 | NUR ---
DC heparin drip Per Dr Guardado's order this RN stopped and discontinued heparin drip.
--- NOTE | 2016-11-11 10:27 | NUR ---
Bowel Movements Pt stated that his last BM was 11/08/16 and that it was normal for him to go q3-4d. This RN offered him a stool softener but pt refused.
--- NOTE | 2016-11-11 11:30 | NUR ---
pt off unit patient off unit for st. no s/s of distress at time of transfer Addendum: 11/11/16 at 1418 by LEYLA STORY RN patient back on unit at 1345. Pt was placed in room but nobody contacted this RN or LANDFILL GRADER when pt returned. pt denies any cp
--- NOTE | 2016-11-11 15:02 | PCM.PNMED ---
Subjective Date of Service Nov 11, 2016 Subjective Denies any new issues/complaints. no further CP. No SOB Exam Vital Signs Vital Sign - Last Date Time Temp Pulse Resp B/P Pulse Ox O2 Delivery O2 Flow Rate FiO2 11/11/16 10:26 36.4 62 20 164/68 98 Room Air Intake and Output 11/10/16 11/10/16 11/11/16 Cumulative From/Thru 15:00 23:00 07:00 11/09/16 13:42 - 11/10/16 19:24 Intake Total 200 ml 870 ml Output Total 475 ml 1250 ml Balance -275 ml -380 ml Intake Oral 200 ml 870 ml Output Urine Total 475 ml 1250 ml Exam General: Alert, Oriented X3, Cooperative, No Acute Distress Head: Normal Eyes: Scleral Anicteric Nose: Mucous Membr Moist/Loco Mouth: Mucous Membr Moist/Loco Neck: Supple Chest & Lungs: Clear to auscultation bilat Cardiovascular: Regular Rate/Rhythm Pulses: NL carotid, radial, femoral, DP, PT Abdomen: Non-tender, Non-distended, Normoactive bowel tones, Soft Extremities: No cyanosis/clubbing/edema bilat Neurological: Grossly Neurologically Intact, Normal Speech IVs and Medications Medications Reviewed: Medications were reviewed in detail Lab and Diagnostics Result Diagram: 11/11/16 0230 11/10/16 0535 X-Rays, CTs and MRIs Date of Service: 11/09/16 1342 PROCEDURE: X-RAY CHEST ONE VIEW, PORTABLE ([id number]) IMPRESSION: No acute cardiopulmonary disease. Dictated by: Sathya Vaughn M.D. on 11/09/2016 at 13:31 Approved by: Sathya Vaughn M.D. on 11/09/2016 at 13:32 Date of Service: 11/10/16 1835 PROCEDURE: CT ANGIO CHEST PULMONARY EMBOLISM ([id number]) IMPRESSION: 1. No evidence for central pulmonary embolism. 2. Stable in size of 9 mm nodule in the right major fissure. 3. Slight interval enlargement of a left upper lobe nodule. Given very low rate growth (from 6 mm on 01/20/2010 to 9 mm on 11/10/2016), a benign etiology is still favored. 4. Mildly enlarged mediastinal and right hilar lymph nodes are stable, most likely reactive. Dictated by: Angeline Tovar M.D. on 11/10/2016 at 19:45 Approved by: Angeline Tovar M.D. on 11/10/2016 at 19:58 12-lead ECG NSR @ [address] elevation/depression Cardiac Echo Impressions Date of Service: 11/10/16 184 Echocardiogram Report Interpretation Summary 1. Mildly dilated left ventricle with mildly increased wall thickness and an estimated EF of 50% 2. Grossly normal right ventricular size with low normal systolic function. 3. No evidence for significant valvular pathology There is no old study for comparison Reading Physician:03:58 PM Assessment & Plan 71 year old male with a history of hypertension and high cholesterol presents to the ED complaining of chest pain and near syncope. # Acute NSTEMI. present on admission - Tele - Trop peaked at 0.056 on 11/09 and now back to normal - ASA daily - Lipitor daily - Echo unremarkable - CTA without PE - Appreciate cardiology consult. Will followup with recs - Stress test per cardiology recs # Hypertension. Poorly controlled - Continue with home dose Propranolol and titrate as needed - Will start low dose Lisinopril # Reported borderline diabetes - ISS - HgA1C 7.2 # Hyperlipidemia - Continue Lipitor - Fasting lipid: Chol 193, LDL 116 # Acute near syncope - Workup as noted above Dispo: 1-2 days pending stress test and improved BP control GI Prophylaxis: Not indicated VTE Prophylaxis: Sub-Q Heparin (Unfractionated) Resuscitation Status: CPR: Attempt Resuscitation (discussed and verified with patient) Hansel Rincon Nov 11, 2016 15:02
--- NOTE | 2016-11-11 15:52 | NUR ---
PSTV, VTach Per tele pt had a 10 sec run of PSVT and then 22 beats of VTach. Patient in the middle of having a BM. Pt denied chest pain and stated that he felt a little dizzy. Paged . Awaiting orders/response Addendum: 11/11/16 at 1558 by LEYLA STORY RN reassessed pt who stated that he felt dizzy and nauseated and like his heart was beating fast. tele the notified this RN that hr was 190s-200s. Ordered stat ekg. still waiting for Addendum: 11/11/16 at 1607 by LEYLA STORY RN VS: BP 149/80 P 71 bg 179 Addendum: 11/11/16 at 1739 by LEYLA STORY RN Spoke with Dr Guardado and administered 25mg PO Lopressor
[2016-11-11] MEDS ORDERED: Amiodarone 150 mg/100 mL D5W IV ONE (18:20)
--- NOTE | 2016-11-11 18:25 | NUR ---
TRANSFER TO [facility] PT TRANSFERED TO [facility] TO ROOM 2012. MEDICATIONS AND PTS BELONGINGS BROUGHT DOWN. REPORT GIVEN TO CT MICHAELS RN. NO S/S OF DISTRESS AT TIME OF TRANSFER
[2016-11-11] MEDS ORDERED: Amiodarone 360 mg/200 mL D5W IV ONE (18:30)
--- NOTE | 2016-11-11 18:32 | NUR ---
Arrival to room 2011 Pt arrived to room 2011. Denies chest pain. No reported dizziness. Transferred to bed with steady gait. SR with PACs per quality assurance monitor body, HR 60s. Normotensive. Sp02 >92% on room air. Pt oriented to room and call light. Plan of care reviewed. Will continue to monitor.
[2016-11-11] MEDS ORDERED: Amiodarone 150 mg/100 mL D5W Premix IV ONE (18:34)
[2016-11-11] MEDS ORDERED: IV Premix 1 EACH IV ONE (18:34)
--- NOTE | 2016-11-11 20:19 | DRSVH ---
PROCEDURE: 1 DAY PHARMACOLOGICAL STRESS TEST INDICATIONS: CHEST PAIN. COMPARISON: None. Radiopharmaceutical: Stress dose 32.6 mCi of technetium 99m tetrofosmin Rest dose 11.1 mCi of technetium 99 tetrofosmin Patient presentation: Patient is a 71-year-old man with near syncope in the setting of hyperlipidemia and family history of heart disease FINDINGS: Pharmacologic stress test: Following informed consent Lexiscan was infused per protocol. Patient dev eloped lightheadedness, dyspnea and upset stomach. Patient developed short runs of regular narrow com plex tachycardia consistent with atrial tachycardia. Patient developed occasional PACs. Patient devel oped ectopic atrial rhythm with inverted P waves in inferior leads. No significant ST segment changes . RAW data: Normal myocardial tracer uptake. Lung heart ratio is normal. Quantitative gated SPECT: At peak stress ejection fraction is 48%. Rest ejection fraction is 41%. The re is septal akinesis. Normal left ventricular end-diastolic dimension. Myocardial perfusion imaging: There is a small mild basal inferior reversible perfusion defect consis tent with diaphragmatic attenuation artifact. No evidence of ischemia prior infarct IMPRESSION: Low risk but abnormal pharmacologic stress test with myocardial perfusion imaging. Cardiomyopathy with ejection fraction of 40% at peak stress and 41% at rest with septal akinesis. There is no evidence of ischemia or prior infarct. Stress test was associated with occasional PACs, brief runs of both atrial tachycardia and ectopic at rial rhythm Dictated by: Roshni Pritchett M.D. on 11/11/2016 at 19:40 Approved by: Roshni Pritchett M.D. on 11/11/2016 at 20:17
[2016-11-12] VITALS (17 sets, daily range): BP systolic 116–139; BP diastolic 52–76; PULSE 58–72; RESP 14–20; O2SAT 93–100
[2016-11-12] MEDS: Amiodarone 360 mg/200 mL D5W IV SCH ×2 (01:19→03:57)
--- NOTE | 2016-11-12 05:40 | NUR ---
Tele No c/o chest pain, pressure or palpitations, Tele SB-SR with HR 50-60s. IV Amiodarone infusing per MD orders. No c/o SOB, RA sats 96-99%. VSS and afebrile. 2nd IV site placed by IV Therapy.
[2016-11-12] MEDS: Insulin Human REGular 300 Unit/3 mL Inj SUBQ SCH ×4 (08:10→22:00)
[2016-11-12] MEDS: MeTOProlol XL 25 mg ER24 Tablet PO SCH ×2 (10:47→20:30)
[2016-11-12] MEDS: Alum-Mag Hydrox-Simeth 30 mL Suspension PO PRN (10:51)
--- NOTE | 2016-11-12 10:51 | PCM.PNMED ---
Subjective Date of Service Nov 12, 2016 Subjective 71-year-old man with history of PSVT and presyncope admitted with increasing frequency of palpitation and acute NSTEMI, subsequently developed with PSVT and wide complex tachycardia, transferred to [facility] on 11/11. No complaints today. No further palpitation or presyncopal symptoms. He is receiving amiodarone loading overnight. He reports some bowel urgency but no diarrhea. Exam Vital Signs Vital Sign - Last Date Time Temp Pulse Resp B/P Pulse Ox O2 Delivery O2 Flow Rate FiO2 11/12/16 03:53 69 14 123/63 97 Room Air 11/11/16 23:11 36.4 Intake and Output 11/11/16 11/11/16 11/12/16 Cumulative From/Thru 15:00 23:00 07:00 11/09/16 13:42 - 11/12/16 06:03 Intake Total 0 ml 360 ml 576 ml 1806 ml Output Total 950 ml 500 ml 500 ml 3200 ml Balance -950 ml -140 ml 76 ml -1394 ml Intake Oral 0 ml 360 ml 300 ml 1530 ml IV Total 276 ml 276 ml Output Urine Total 950 ml 500 ml 300 ml 3000 ml Urine/Stool Mix 200 ml 200 ml # Voids 1 1 2 # Bowel Movements 2 2 Exam General: Mildly obese man in no acute distress HEENT: sclerae anicteric, oral mucosa moist Neck: no JVD Chest: clear to auscultation Cardiac: Distant sounds, S1S2, regular, no murmur Abdomen: BS normal, non-tender Extremities: No edema Neuro: A&O, cranial nerves symmetric, motor strength and coordination normal IVs and Medications Medications Reviewed: Medications were reviewed in detail Lab and Diagnostics Troponin sequence peak of 0.056 on 11/10 at 02:05 subsequently normal Result Diagram: 11/11/16 0230 11/10/16 0535 X-Rays, CTs and MRIs Date of Service: 11/09/16 1342 PROCEDURE: X-RAY CHEST ONE VIEW, PORTABLE ([id number]) IMPRESSION: No acute cardiopulmonary disease. Dictated by: Sathya Vaughn M.D. on 11/09/2016 at 13:31 Approved by: Sathya Vaughn M.D. on 11/09/2016 at 13:32 Date of Service: 11/10/16 1835 PROCEDURE: CT ANGIO CHEST PULMONARY EMBOLISM ([id number]) IMPRESSION: 1. No evidence for central pulmonary embolism. 2. Stable in size of 9 mm nodule in the right major fissure. 3. Slight interval enlargement of a left upper lobe nodule. Given very low rate growth (from 6 mm on 01/20/2010 to 9 mm on 11/10/2016), a benign etiology is still favored. 4. Mildly enlarged mediastinal and right hilar lymph nodes are stable, most likely reactive. Dictated by: Angeline Tovar M.D. on 11/10/2016 at 19:45 Approved by: Angeline Tovar M.D. on 11/10/2016 at 19:58 12-lead ECG 11/09 13:47 sinus rhythm with PAC, half millimeter lateral ST depression Cardiac Echo Impressions Date of Service: 11/10/16 1849 Echocardiogram Report Interpretation Summary 1. Mildly dilated left ventricle with mildly increased wall thickness and an estimated EF of 50% 2. Grossly normal right ventricular size with low normal systolic function. 3. No evidence for significant valvular pathology There is no old study for comparison Reading Physician:03:58 PM Additional Diagnostics PROCEDURE: 1 DAY PHARMACOLOGICAL STRESS TEST INDICATIONS: CHEST PAIN. COMPARISON: None. Radiopharmaceutical: Stress dose 32.6 mCi of technetium 99m tetrofosmin Rest dose 11.1 mCi of technetium 99 tetrofosmin Patient presentation: Patient is a 71-year-old man with near syncope in the setting of hyperlipidemia and family history of heart disease FINDINGS: Pharmacologic stress test: Following informed consent Lexiscan was infused per protocol. Patient developed lightheadedness, dyspnea and upset stomach. Patient developed short runs of regular narrow complex tachycardia consistent with atrial tachycardia. Patient developed occasional PACs. Patient developed ectopic atrial rhythm with inverted P waves in inferior leads. No significant ST segment changes. Quantitative gated SPECT: At peak stress ejection fraction is 48%. Rest ejection fraction is 41%. There is septal akinesis. Normal left ventricular end- diastolic dimension. Myocardial perfusion imaging: There is a small mild basal inferior reversible perfusion defect consistent with diaphragmatic attenuation artifact. No evidence of ischemia prior infarct IMPRESSION: Low risk but abnormal pharmacologic stress test with myocardial perfusion imaging. Cardiomyopathy with ejection fraction of 40% at peak stress and 41% at rest with septal akinesis. There is no evidence of ischemia or prior infarct. Stress test was associated with occasional PACs, brief runs of both atrial tachycardia and ectopic atrial rhythm Dictated by: Roshni Pritchett M.D. on 11/11/2016 at 19:40 . Assessment & Plan 71 year old male with a history of hypertension and high cholesterol presents to the ED complaining of chest pain and near syncope. # Acute NSTEMI. present on admission - Tele - ASA daily - High intensity Lipitor daily - propagator laborer today with Dr. Sanchez # PSVT with wide complex tachycardia. - Discontinue amiodarone - Initiate metoprolol succinate # Hypertension. Poorly controlled - Discontinue Propranolol - Initiate beta cosme metoprolol succinate - Initiate lisinopril # Type II diabetes mellitus, diet controlled. A1c 7.2% - 4 times a day capillary blood glucose - Glucose control goals: Random less than 180, fasting less than 140, none less than 70 - Insulin as needed, divided 50-50 long-acting and nutritional/correctional # Hyperlipidemia - Continue Lipitor 40 mg at bedtime - Fasting lipid: Chol 193, LDL 116 # Acute near syncope - Workup as noted above Dispo: 1-2 days pending stress test and improved BP control GI Prophylaxis: Not indicated VTE Prophylaxis: Sub-Q Heparin (Unfractionated) Resuscitation Status: CPR: Attempt Resuscitation (discussed and verified with patient) Time spent 35 minutes Brendon Roach MD Nov 12, 2016 07:33
--- NOTE | 2016-11-12 11:01 | PROG NOTE ---
[address] [address] PROGRESS NOTE PATIENT: DOUG HERNANDEZ : 1945 MR#: [id number] ADMIT: 11/09/2016 JOB ID: [id number] DATE: 11/12/2016 SUBJECTIVE: The patient had an episode of fast heart rate yesterday evening and felt lightheadedness and similar feeling which brought him to the hospital. At present, he is lying on bed. He is on amiodarone drip. No active chest pain or worsening shortness of breath or recurrence of palpitations, dizziness or new cardiovascular symptoms. In summary, this 71-year-old pleasant male who has a history of hypertension, hyperlipidemia, came with recurrent lightheadedness, near syncopal episode. In the hospital, the patient has serial troponin and some of the troponins values were abnormal. His initial troponin was less than 0.010. Then it became 0.014 and 0.056 on November 10, 2016. Then repeat one came down to less than 0.010. The patient underwent echocardiogram on November 10, 2016 which I reviewed by myself. Left ventricle is dilated. There appears to be [id number]-ikzyqzja diffuse global hypokinesis. LV ejection fraction reported to be 50%. However, I think it is about 40%-45% range. RV normal. There was [id number] mitral regurgitation. The patient had a perfusion study yesterday which I reviewed by myself. Resting LV ejection fraction about 41%. Septal akinesis was reported. There appears to be mildly decreased perfusion of basal inferior wall, extending into the basal inferior lateral wall and inferior apex. I do not see any obvious prone images. Likely it is a fixed defect. In the hospital, the patient developed fast ventricular rate. Yesterday about 3:57, the patient developed narrow QRS regular tachycardia, rate up to 207, and during that time, the patient has about [address] depression as well. It appears to be SVT. No typical atrial flutter/fib seen. Then about 3:50, there was evidence of wide QRS tachycardia, which appears to be regular initiated as narrow QRS tachycardia, likely aberrant conduction. However, cannot rule out possibility of nonsustained ventricular tachycardia. OBJECTIVE: Blood pressure 126/70, heart rate 71, respiratory rate 16, oxygen saturation 97%. Neck: No apparent JVP. Chest: No obvious crepitation or rhonchi. CVS: Clinically S1, S2 normal. No S3, no S4. I do not appreciate any significant murmur. Abdomen: Obese, no obvious pulsatile mass or hepatosplenomegaly. Extremities: Mild pedal edema. Groin: No evidence of femoral bruit. SANITARY [place] MACHINE TENDER: Alert, oriented to time, place and person. IMAGING PROCEDURE: The patient had CT angio chest on November 10, 2016 which did not reveal any pulmonary embolism. Mildly enlarged mediastinal and right hilar lymph nodes which are stable, 9 mm nodule in the right major fissure and slight interval enlargement of a left upper lobe nodule. In December 2009 it was 6 mm, in November 10, 2016 it was 9 mm. Given very low growth a benign etiology was suggested by radiology. LABORATORIES: Sodium 141, potassium 4.1, BUN 14, creatinine 0.82, triglyceride 235, LDL 116. Magnesium 1.7. WBC 6.9, hemoglobin 13.6, platelets 250. At present patient is sinus rhythm. ASSESSMENT/PLAN: Dilated cardiomyopathy with LV ejection fraction in the range of 40%-45%, abnormal EKG with ST depression during narrow QRS tachycardia, mildly decreased perfusion of basal inferior wall, basal inferior lateral wall and inferior apex which appears to be fixed, known CAD risk factors, with underlying hypertension, hyperlipidemia, male sex, more than 45 years old as well as likely diabetes. His hemoglobin A1c 7.2. In his case, it is important to rule out coronary artery disease for sure. We will recommend left heart catheterization. Benefits and risks, which include, but not limited to, risk of bleeding, groin complication, myocardial infarction, stroke, , renal insufficiency, and peripheral vascular complication, etc. in details discussed with the patient in the presence of nurse, Nieves. He verbalizes understanding. All the questions were answered. He is willing to have this procedure done. The patient also has narrow QRS tachycardia, likely SVT resulting in lightheadedness and near syncope. The patient was symptomatic yesterday. He was started on IV amiodarone last night. I will stop amiodarone. Will change propranolol to metoprolol succinate 25 mg b.i.d. to begin with. Will increase atorvastatin to 40 mg daily. He is already on SERENE inhibitor and aspirin. Decision about spironolactone after left heart catheterization. The patient denies any history of sleep apnea. However, he has history of snoring. Sleep apnea workup as an outpatient. I would like to keep magnesium more than 2. Hence will start with magnesium supplementation as well. Discussed the plan with Dr. Roach as well who agreed and concurred. TOTAL TIME SPENT: Today including reviewing his hospital records, examination, having discussion with hospitalist team about 55 minutes.
[2016-11-12 11:08] LABS: BASOPHILS % (AUTO) 0.4 % (0-3); EOSINOPHILS % (AUTO) 2.6 % (0-5); MONOCYTES % (AUTO) 6.9 % (4-12); Mean Corpuscular Hemoglobin 29.6 pg (27.0-35.0); Mean Corpuscular Volume 85.7 fL (81-100); NEUTROPHILS % (AUTO) 53.8 % (40-74); Platelet Count 224 bil/L (150-400)
[2016-11-12 11:17] LABS: INR 0.96 ratio
[2016-11-12] MEDS ORDERED: Heparin 1,000 Units/500 mL NS Premix IV ONE (13:32)
[2016-11-12] MEDS ORDERED: Ondansetron 2 mg/mL 2 mL Inj ONE (13:33)
[2016-11-12] MEDS ORDERED: Heparin 10,000 Unit/1,000 mL NS Premix IV ONE ×2 (13:33→13:45)
--- NOTE | 2016-11-12 13:38 | NUR ---
Heart Cath Pt left [facility] for heart cath at 1338.
[2016-11-12] MEDS ORDERED: Famotidine 20 mg/50 mL NS Premix IV ONE (14:07)
[2016-11-12] MEDS ORDERED: 0.9% Sodium Chloride 0 ML ONE (14:30)
[2016-11-12] MEDS ORDERED: Adenosine Inj 0 ML IV ONE (14:30)
--- NOTE | 2016-11-12 15:19 | NUR ---
Received Received from [employer] about 1500. VSS. Denies pain except for where BP is being taken. Pt. with bruising and 2 skin tears to anterior elbow. States from tape placed after blood draws. Cleansed gently and telfa applied. Ointment not used as states allergy to neosporin. Wrapped with kerlix. Right groin without bleeding or hematoma. Taking po fluids without nausea. Continue to monitor per orders. Addendum: 11/12/16 at 1554 by LAVERNE KNIGHT RN Tele SR with PAC's
[2016-11-12] MEDS ORDERED: 0.9% Sodium Chloride 250 ML IV PRN (16:10)
[2016-11-12] MEDS ORDERED: Ondansetron 2 mg/mL 2 mL Inj IVPUSH PRN (16:10)
[2016-11-12] MEDS ORDERED: 0.9% Sodium Chloride 1,000 ML IV PRN (16:10)
--- NOTE | 2016-11-12 16:33 | NUR ---
Pain C/O intermittent pain in left hip. Moving left leg prn. Groin precautions reviewed and attempting to follow. No bleeding or hematoma to this point. Offered ordered pain meds but refusing at this time. Continue to monitor.
--- NOTE | 2016-11-12 17:12 | NUR ---
Transfer Dozing intermittently. No change in assessment. Report to Sally Sylvester RN. Transported to 2012 with glasses at 1705 in no distress via bed. Bedside check done.
--- NOTE | 2016-11-12 17:22 | NUR ---
Post Heart Cath Pt returned to [facility] at 1715. Pt AAOx4, denies pain/discomfort. Denies CP/Pressure. NSR 60s. 122/76. SpO2 97% on RA. R groin site covered with op-site, no oozing or hematoma present. DP pulses palpable. Bedrest until 1900. NS at 100cc/hr until 1930.
--- NOTE | 2016-11-12 18:48 | CS94 ---
[address] [address] DIAGNOSTIC CARDIAC CATHETERIZATION PATIENT: DOUG HERNANDEZ : 1945 MR#: [id number] ADMIT: 11/09/2016 JOB ID: [id number] SERVICE DATE: 11/13/2016 INDICATION: Dilated cardiomyopathy with LV ejection fraction 40% to 45% with abnormal EKG with ST depression during narrow QRS tachycardia, abnormal perfusion study with mildly decreased perfusion of basal inferior wall, basal inferolateral wall, as well as inferior apex which appears to be fixed with known CAD risk factors, with underlying hypertension, hyperlipidemia, diabetes mellitus, male sex, and more than 45 years old. Benefits and risks of left heart catheterization which include but not limited to risk of bleeding, groin complication, myocardial infarction, stroke, , renal insufficiency, and peripheral vascular complication, etc., discussed with the patient. He verbalizes understanding. All the questions were answered. CHILD CARE: Arcenio Sanchez MD. PROCEDURE: 1. Left heart catheterization. 2. Coronary arteriography. 3. Left ventriculography. PROCEDURE: Right groin was cleaned, prepped, and draped in the usual sterile fashion. The skin and subcutaneous tissue was anesthetized with 1% lidocaine. Right femoral artery was accessed. A 6-Pashto sheath was introduced into the right femoral artery using modified Seldinger technique. The left coronary artery and the right coronary artery were engaged with 6-Pashto JL4 and JR4 catheters, respectively. Left ventriculography was done with 6-Pashto pigtail catheter. All the catheters were advanced over the guidewire and flushed with heparinized saline. Multiple standard projections were obtained. Total of 90 cc [id number]-[id number] dye was used. The patient tolerated the procedure. There were no immediate complications. All the exchanges were made over the guidewire. Hemostasis was achieved by manual compression. HEMODYNAMICS: LV systolic pressure was about 132 mmHg. LVEDP was about 10 mmHg. Aortic pressure was about 132/65 mmHg. There was no significant pullback gradient between the aorta and left ventricle. LEFT VENTRICULOGRAPHY: The left ventriculography revealed dilated left ventricle with LV ejection fraction 40% to 45% with global hypokinesis and catheter-induced mitral regurgitation. CORONARY ARTERIOGRAPHY: 1. Left main artery. The left main artery has some calcification and mild proximal disease without any critical stenosis. There was no dampening of pressure. There was good dye flushback. 2. Left anterior descending artery. The left anterior descending artery is a large, good-size artery, and it wraps around the apex. At the origin with septal industrial robotics mechanic, LAD harbors eccentric about 50% disease. We took multiple views. There is a DELFINO-3 flow. It does not appears to be critical. 3. Left circumflex artery. The left circumflex artery is a large dominant artery. It gives rise to 1st obtuse marginal branch which in fact appears to be like ramus intermedius. It is a good-sized branch. It further gives rise to superior branch. The OM-/ramus intermedius appears to have 20% to 30% proximal disease. The superior branch of this branch is a very small vessel and has diffuse proximal disease. There is another mid to distal obtuse marginal branch which has very tight ostial disease and then it occluded proximally. It appears to be small vessel. 4. The left PDA at its origin from the distal circumflex has moderate disease, about 50% to 60% in some views. It does not appear to be critically diseased. There was DELFINO-3 flow. The posterolateral marginal branch is tortuous vessel without any critical disease. 5. Right coronary artery. The right coronary artery is a small nondominant artery and was occluded proximally. CONCLUSION: About 50% proximal LAD disease at bifurcation with septal industrial robotics mechanic. We took multiple views. It does not appear to be critical. The mid obtuse marginal branch appears to be occluded but it appears to be small vessel. The PDA arising from the left circumflex artery has moderate disease but there was DELFINO-3 flow. It does not appear to be critical. Left circumflex artery is a dominant artery. Right coronary artery is a small nondominant artery and occluded proximally. Cath film was reviewed with our eight arm operator, Dr. Chavez. He reviewed the whole catheterization pictures. At this point of time, recommendation is medical management and risk factor modification. On perfusion scan, there was no reversible ischemia or obvious perfusion defect in the LAD territory. Considering the size of right coronary artery and obtuse marginal branch, the LV dysfunction appears to be out of proportion to coronary artery disease. There is a possibility of nonischemic cardiomyopathy as well. Discussed with the patient.
[2016-11-13 04:33] VITALS: BP 123/71; PULSE 61; RESP 12; O2SAT 96
[2016-11-13 04:57] VITALS: PULSE 64
--- NOTE | 2016-11-13 06:00 | NUR ---
skin patient has left arm skin abrasion/tear s/p lab draws per patient report cleaned area. applied vaseline and heat pack. slight redness and tender. no drainage. tolerated.
[2016-11-13 07:06] VITALS: BP 149/70; PULSE 61; RESP 16; O2SAT 99
[2016-11-13] MEDS: MeTOProlol XL 25 mg ER24 Tablet PO SCH (07:31)
[2016-11-13] MEDS: Insulin Human REGular 300 Unit/3 mL Inj SUBQ SCH ×2 (07:32→11:26)
--- NOTE | 2016-11-13 10:03 | NUR ---
Status Patient without complaints. SR with occasional PACs per delivery clerk. HR 60s to 70s. Pressure stable. Right going site c/d/i. Site nontender and soft, no s/s of hematoma or bruising. Denies pain. Ambulated halls without difficulty. Denies dizziness. Continuing with discharge preparation.
[2016-11-13 10:35] VITALS: PULSE 64
[2016-11-13 11:20] VITALS: BP 146/79; PULSE 67; RESP 19; O2SAT 95
[2016-11-13] MEDS ORDERED: ATOR10TA66 PO (11:50)
[2016-11-13] MEDS ORDERED: METO25TA99 PO (11:50)
[2016-11-13] MEDS ORDERED: CLOP75TA28 PO (11:50)
[2016-11-13] MEDS ORDERED: SPIR25TA PO (11:50)
[2016-11-13] MEDS ORDERED: LISI-571 PO (11:50)
--- NOTE | 2016-11-13 11:56 | PROG NOTE ---
[address] [address] PROGRESS NOTE PATIENT: DOUG HERNANDEZ : 1945 MR#: [id number] ADMIT: 11/09/2016 JOB ID: [id number] DATE: 11/13/2016 SUBJECTIVE: The patient is feeling better. No palpitations or dizziness or syncope or chest pain or worsening shortness of breath or groin pain. In summary, this 71-year-old, pleasant male who has a history of hypertension, hyperlipidemia and newly found diabetes mellitus presented with recurrent lightheadedness, near syncopal episode. His initial troponin was 0.010. Then, it became 0.014 and 0.056 on November 10. Then, it became normal. The patient underwent echocardiogram. I reviewed that echocardiogram by myself. LV ejection fraction was about 40% to 45% range with mild to moderate mitral regurgitation. On perfusion scan, there was mildly decreased perfusion of basal inferior wall extending into the basal inferior lateral and inferior apex. No obvious prone images. The patient in the hospital has narrow QRS tachycardia, rate about 207, with ST depression, which appears to be SVT. No obvious atrial flutter is seen. The patient also has evidence of wide QRS tachycardia, which initially initiated as narrow QRS tachycardia, likely aberrant conduction. Because of significant CAD risk factors, abnormal perfusion study, LV ejection fraction of 40% to 45%, ST depression during tachycardia episode, the patient underwent left heart catheterization yesterday to rule out significant coronary artery disease. On left heart catheterization, the patient has about a 50% proximal to mid LAD with DELFINO-3 flow. On multiple views, it does not appear to be critical. On perfusion scan, there was no obvious perfusion defect in the LAD territory. The circumflex was a dominant artery. It does not have critical disease by itself. However, one of the mid obtuse marginal branches has very tight ostial disease and then, it was occluded proximally. It appears to be a small vessel. Right coronary artery was a small, nondominant artery and was occluded proximally. The PDA branch of the circumflex has about 50% to 60% at its origin. Right coronary artery and the obtuse marginal branch were not amenable for percutaneous intervention. As per Dr. Chavez, medical management was suggested. The patient was given Plavix as well. OBJECTIVE: Blood pressure 123/71 to 149/70, heart rate 61, respiratory rate 16, oxygen saturation 99%. Neck: No apparent JVP. Chest: No obvious crepitation. CV: S1, S2 normal. No S3, no S4. No new significant murmur. Abdomen: Obese. No obvious pulsatile mass. Extremities: No evidence of critical limb ischemia. Right groin examination did not reveal any obvious significant hematoma or bruit or pulsatile mass. AUTOMATIC GRINDING MACHINE OPERATOR: Alert, oriented to time, place and person. TELEMETRY: Sinus rhythm with some PACs, without any recurrence of supraventricular tachycardia or aberrant conduction. LABORATORIES: Sodium 140, potassium 4.2, BUN 16, creatinine 0.88. Hemoglobin 15.9, platelets 224. ASSESSMENT AND PLAN: Dilated cardiomyopathy with left ventricular ejection fraction in the range of 40% to 45% which appears to be a combination of nonischemic, as well as some component of ischemic cardiomyopathy. Circumflex artery is a dominant artery, as well as left anterior descending is a big-sized artery. They do not have any critical stenosis. However, one of the mid obtuse marginal branches was occluded proximally which appears to be a small vessel. Right coronary artery was a small vessel, a nondominant vessel, and occluded proximally. The left ventricular dysfunction appears to be out of proportion to coronary artery disease. One of the troponin sets was abnormal. The patient had episode of supraventricular tachycardia. At present, no recurrence. At this point of time, he appears compensated. Will recommend medical management and risk factor modification. Will recommend dual antiplatelet therapy, as maybe he has possible acute coronary syndrome. He is on high intensity statin, as well as is tolerating beta cosme and angiotensin-converting enzyme inhibitor and spironolactone. From Cardiology perspective, he can be discharged. Follow up with Dr. Guardado in two weeks, as well as with Dr. Styles regarding supraventricular tachycardia evaluation. Discussed the plan with the patient. Groin care explained. At this point of time, Cardiology service will sign off. TOTAL TIME SPENT TODAY: About 35 minutes.
--- NOTE | 2016-11-13 11:58 | PCM.DIMED ---
Discharge Instructions Date of Service Nov 13, 2016 Dates of Hospitalization Nov 09, 2016 at 15:43 Discharge Diagnosis Discharge Diagnosis Supraventricular tachycardia Coronary artery disease Congestive heart failure Type II diabetes mellitus Medication Instructions Additional med instructions The medication metoprolol has been prescribed to control your episodes of rapid heart rate (supraventricular tachycardia). Plavix and baby aspirin have been prescribed due to your coronary artery disease. Your heart function is mildly reduced (congestive heart failure). The medications metoprolol, lisinopril and spironolactone have been prescribed because they are effective in the treatment of congestive heart failure. The hemoglobin A1c test of your diabetes is 7.2%. The goal is less than 7%. You should discuss medication for type II diabetes with your primary care physician. Diet Discharge Diet: Heart Healthy, Diabetic Activity Discharge Activity: No restrictions Call your provider Call your provider for: Chest pain Patient Instructions Patient Instructions You should contact the [facility] cardiology clinic for a follow-up appointment with Dr. Styles regarding your supraventricular tachycardia. You should see your primary care doctor within 1 week to follow-up changes in your medications and you need for further treatment for diabetes. Follow-up plan Refer to [facility] if no current PCP. Follow-up Provider: Deng Styles MD Follow-up with PCP in: 3 weeks Brendon Roach MD Nov 13, 2016 11:58
--- NOTE | 2016-11-13 12:10 | NUR ---
Social Work: Discharge D: Pt discussed in am rounds. Pt is medically stable for discharge home. Pt has been I during admission. OIL AND GAS RECRUITER met with the patient at bedside to confirm discharge plan. Pt standing independently in the room. Pt expresses no concerns about his discharge home and states that he is very eager to leave. EMR reviewed and no sw needs identified at this time. A: Pt who is I at baseline. P: Pt to discharge home, pt to transport self. No sw needs identified. DONNA Lopez
--- NOTE | 2016-11-13 12:42 | NUR ---
Discharge Discharge instructions and medications reviewed at bedside, pt verbalizes understanding of. Vital signs stable. No reported pain. Right groin site free of complications. Peripheral IV d/c. Plan to escort pt to private vehicle after he finishes his lunch.
--- NOTE | 2016-11-13 18:33 | PCM.DC.MED ---
Discharge Summary Date of Service Nov 13, 2016 Dates of Hospitalization Date of Hospital Admission Nov 09, 2016 at 15:43 Date of Discharge: Nov 13, 2016 Providers: Admitting Physician: Hansel Rincon Primary Care Physician: Tato Attending Physician: Hansel Rincon Diagnosis at Time of Discharge Diagnosis at Time of Discharge Supraventricular tachycardia Coronary artery disease Congestive heart failure Type II diabetes mellitus Consultations Cardiology, Dr. Tyrel Guardado, Dr. Kori Sanchez Procedures XRay, CTs & MRIs Date of Service: 11/09/16 1342 PROCEDURE: X-RAY CHEST ONE VIEW, PORTABLE ([id number]) IMPRESSION: No acute cardiopulmonary disease. Dictated by: Sathya Vaughn M.D. on 11/09/2016 at 13:31 Approved by: Sathya Vaughn M.D. on 11/09/2016 at 13:32 Date of Service: 11/10/16 1835 PROCEDURE: CT ANGIO CHEST PULMONARY EMBOLISM ([id number]) IMPRESSION: 1. No evidence for central pulmonary embolism. 2. Stable in size of 9 mm nodule in the right major fissure. 3. Slight interval enlargement of a left upper lobe nodule. Given very low rate growth (from 6 mm on 01/20/2010 to 9 mm on 11/10/2016), a benign etiology is still favored. 4. Mildly enlarged mediastinal and right hilar lymph nodes are stable, most likely reactive. Dictated by: Angeline Tovar M.D. on 11/10/2016 at 19:45 Approved by: Angeline Tovar M.D. on 11/10/2016 at 19:58 ECG 12 Lead 11/09 13:47 sinus rhythm with PAC, half millimeter lateral ST depression Cardiac Echo Impression Date of Service: 11/10/16 1849 Echocardiogram Report Interpretation Summary 1. Mildly dilated left ventricle with mildly increased wall thickness and an estimated EF of 50% 2. Grossly normal right ventricular size with low normal systolic function. 3. No evidence for significant valvular pathology There is no old study for comparison Reading Physician:03:58 PM Other Diagnostics PROCEDURE: 1 DAY PHARMACOLOGICAL STRESS TEST INDICATIONS: CHEST PAIN. COMPARISON: None. Radiopharmaceutical: Stress dose 32.6 mCi of technetium 99m tetrofosmin Rest dose 11.1 mCi of technetium 99 tetrofosmin Patient presentation: Patient is a 71-year-old man with near syncope in the setting of hyperlipidemia and family history of heart disease FINDINGS: Pharmacologic stress test: Following informed consent Lexiscan was infused per protocol. Patient developed lightheadedness, dyspnea and upset stomach. Patient developed short runs of regular narrow complex tachycardia consistent with atrial tachycardia. Patient developed occasional PACs. Patient developed ectopic atrial rhythm with inverted P waves in inferior leads. No significant ST segment changes. Quantitative gated SPECT: At peak stress ejection fraction is 48%. Rest ejection fraction is 41%. There is septal akinesis. Normal left ventricular end- diastolic dimension. Myocardial perfusion imaging: There is a small mild basal inferior reversible perfusion defect consistent with diaphragmatic attenuation artifact. No evidence of ischemia prior infarct IMPRESSION: Low risk but abnormal pharmacologic stress test with myocardial perfusion imaging. Cardiomyopathy with ejection fraction of 40% at peak stress and 41% at rest with septal akinesis. There is no evidence of ischemia or prior infarct. Stress test was associated with occasional PACs, brief runs of both atrial tachycardia and ectopic atrial rhythm Dictated by: Roshni Pritchett M.D. on 11/11/2016 at 19:40 DIAGNOSTIC CARDIAC CATHETERIZATION PATIENT: DOUG HERNANDEZ : 1945 MR#: [id number] ADMIT: 11/09/2016 JOB ID: [id number] SERVICE DATE: 11/13/2016 PROCEDURE: 1. Left heart catheterization. 2. Coronary arteriography. 3. Left ventriculography. HEMODYNAMICS: LV systolic pressure was about 132 mmHg. LVEDP was about 10 mmHg. Aortic pressure was about 132/65 mmHg. There was no significant pullback gradient between the aorta and left ventricle. LEFT VENTRICULOGRAPHY: The left ventriculography revealed dilated left ventricle with LV ejection fraction 40% to 45% with global hypokinesis and catheter-induced mitral regurgitation. CORONARY ARTERIOGRAPHY: 1. Left main artery. The left main artery has some calcification and mild proximal disease without any critical stenosis. There was no dampening of pressure. There was good dye flushback. 2. Left anterior descending artery. The left anterior descending artery is a large, good-size artery, and it wraps around the apex. At the origin with septal instructional technology specialist, LAD harbors eccentric about 50% disease. We took multiple views. There is a DELFINO-3 flow. It does not appears to be critical. 3. Left circumflex artery. The left circumflex artery is a large dominant artery. It gives rise to 1st obtuse marginal branch which in fact appears to be like ramus intermedius. It is a good-sized branch. It further gives rise to superior branch. The OM-/ramus intermedius appears to have 20% to 30% proximal disease. The superior branch of this branch is a very small vessel and has diffuse proximal disease. There is another mid to distal obtuse marginal branch which has very tight ostial disease and then it occluded proximally. It appears to be small vessel. 4. The left PDA at its origin from the distal circumflex has moderate disease, about 50% to 60% in some views. It does not appear to be critically diseased. There was DELFINO-3 flow. The posterolateral marginal branch is tortuous vessel without any critical disease. 5. Right coronary artery. The right coronary artery is a small nondominant artery and was occluded proximally. CONCLUSION: About 50% proximal LAD disease at bifurcation with septal instructional technology specialist. We took multiple views. It does not appear to be critical. The mid obtuse marginal branch appears to be occluded but it appears to be small vessel. The PDA arising from the left circumflex artery has moderate disease but there was DELFINO-3 flow. It does not appear to be critical. Left circumflex artery is a dominant artery. Right coronary artery is a small nondominant artery and occluded proximally. Cath film was reviewed with our corrosion technician, Dr. Chavez. He reviewed the whole catheterization pictures. At this point of time, recommendation is medical management and risk factor modification. On perfusion scan, there was no reversible ischemia or obvious perfusion defect in the LAD territory. Considering the size of right coronary artery and obtuse marginal branch, the LV dysfunction appears to be out of proportion to coronary artery disease. There is a possibility of nonischemic cardiomyopathy as well. Discussed with the patient. Arcenio Sanchez MD 11/12/161812 . Brief History History of Present Illness (per admission note): 71 year old male with a history of hypertension and high cholesterol presents to the ED complaining of chest pain and near syncope. He had been in his usual of state of health until earlier today around noon time while at home he walked to his car and all off a sudden felt significantly lightheaded. He sat down and after a while he felt improved. He then drove to [employer] and after dropping of a letter he walked back to his car at which time he felt significant pain in both his arms radiating across his chest. This lasted 5 minutes and his symptoms resolved before he drove himself to the ED. He has experienced two similar episodes in the last two weeks, both of which occurred during activity. The pt has a history of hypertension but has not been taking his medication for the last week. Hospital Course # Acute NSTEMI. present on admission. No symptomatic chest pain. Troponin normalized promptly. Catheterization results noted. Cardiology consult recommends medical management. - Metoprolol - ASA, High intensity Lipitor daily - Nitrates when necessary if symptomatic # PSVT with wide complex tachycardia. Accelerating episodes of presyncope. None recurred during hospitalization. - Discontinue amiodarone - Initiate metoprolol succinate - Refer to Dr. Deng Styles for outpatient follow-up with possible electrophysiology intervention # Congestive heart failure, chronic, present on admission. Moderate reduction of LVEF to 40-45%. Ischemic cardiomyopathy. Duration is uncertain. Symptoms are NYHA class I-II. - Lisinopril initiated - Beta cosme initiated - Spironolactone initiated - Patient advised regarding signs and symptoms, importance of salt control and weight monitoring. # Hypertension. Poorly controlled - Discontinue Propranolol - Initiate beta cosme metoprolol succinate - Initiate lisinopril # Type II diabetes mellitus, diet controlled. A1c 7.2% - Blood glucoses were largely goal during hospitalization - Initiation of oral antihyperglycemic agent is deferred to his PCP # Hyperlipidemia - Continue Lipitor 40 mg at bedtime - Fasting lipid: Chol 193, LDL 116 . Exam Vital Signs (Last) Date Time Temp Pulse Resp B/P Pulse Ox O2 Delivery O2 Flow Rate FiO2 11/13/16 11:20 36.2 67 19 146/79 95 Room Air Exam General: Mildly obese man in no acute distress HEENT: sclerae anicteric, oral mucosa moist Neck: no JVD Chest: clear to auscultation Cardiac: S1S2, regular, no murmur Abdomen: BS normal, non-tender Extremities: No edema Neuro: A&O, cranial nerves symmetric, motor strength and coordination normal Test 11/09/16 13:55 11/09/16 20:30 11/10/16 05:35 11/10/16 13:48 Hemoglobin A1c 7.2% (4.8-5.6) Total Bilirubin 0.4mg/dL (0.0-1.2) Aspartate Amino Transf (AST/SGOT) 29U/L (0-50) Alanine Aminotransferase (ALT/SGPT) 37U/L (0-44) Alkaline Phosphatase 80U/L (25-160) Total Protein 7.2g/dL (6.4-8.4) Albumin 4.0g/dL (3.4-5.0) Hold Beckham Top Tube Received (Received) Urine Color Yellow (YELLOW) Urine Appearance Clear (CLEAR,HAZY) Urine pH 5.0 (5.0-8.0) Urine Specific [place] 1.025 (1.003-1.035) Urine Protein Negativemg/dL (NEG,TRACE) Urine Glucose (UA) Negativemg/dL (NEGATIVE) Urine Ketones Negativemg/dL (NEGATIVE) Urine Occult Blood Negative (NEGATIVE) Urine Nitrite Negative (NEGATIVE) Urine Bilirubin Negative (NEGATIVE) Urine Urobilinogen Normalmg/dL (NORMAL) Urine Leukocyte Esterase Negative (NEGATIVE) Urine RBC 0-2/hpf (0-2) Urine WBC 0-5/hpf (0-5) Urine Epithelial Cells Few/hpf (NONE-MOD) Urine Crystals None seen (NONE SEEN) Urine Bacteria Few/hpf (NONE-FEW) Urine Hyaline Casts None/lpf (NONE) Urine Granular Casts None seen (NONE SEEN) Urine Waxy Casts None seen (NONE SEEN) Urine Red Blood Cell Casts None seen (NONE SEEN) Urine White Blood Cell Casts None seen (NONE SEEN) Urine Mucus Present (None Seen) Urine Trichomonas None seen (NONE SEEN) Urine Yeast None (NONE SEEN) Urinalysis Comment None Urine Culture Reflexed Not indicated D-Dimer 0.89mg/L FEU (<0.50) Magnesium Level 1.7mg/dL (1.6-2.6) Triglycerides Level 235mg/dL (0-149) Cholesterol Level 193mg/dL (100-199) LDL Cholesterol, Calculated 116.000mg/dL (0-99) VLDL Cholesterol 47.000mg/dL HDL Cholesterol 30mg/dL (>39) Cholesterol/HDL Ratio 6.43 (0.0-4.4) Troponin T < 0.010ug/L (0.0-0.011) Test 11/11/16 08:15 11/12/16 10:57 11/13/16 02:51 Activated Partial Thromboplast Time 44.7sec (22.8-33.0) White Blood Count 7.4th/mm3 (3.8-10.1) Red Blood Count 5.37mil/mm3 (4.40-5.80) Hemoglobin 15.9g/dL (13.8-17.2) Hematocrit 46.0% (41.0-50.0) Mean Corpuscular Volume 85.7fL (81-100) Mean Corpuscular Hemoglobin 29.6pg (27.0-35.0) Mean Corpuscular Hemoglobin Concent 34.6% (32.0-37.0) Red Cell Distribution Width 13.2% (12.3-15.4) Platelet Count 224bil/L (150-400) Neutrophils (%) (Auto) 53.8% (40-74) Lymphocytes (%) (Auto) 36.2% (14-46) Monocytes (%) (Auto) 6.9% (4-12) Eosinophils (%) (Auto) 2.6% (0-5) Basophils (%) (Auto) 0.4% (0-3) Prothrombin Time 10.3sec (8.1-12.5) Prothromb Time International Ratio 0.96ratio Sodium Level 140mEq/L (134-144) Potassium Level 4.2mEq/L (3.5-5.2) Chloride Level 104mEq/L (97-108) Carbon Dioxide Level 22mmol/L (18-29) Blood Urea Nitrogen 16mg/dL (8-27) Creatinine 0.88mg/dL (0.76-1.27) Estimat Glomerular Filtration Rate 91mL/min (>59) Glucose Level 126mg/dL (60-99) Calcium Level 8.8mg/dL (8.5-10.1) Discharge Medications Discharge Medications Aspirin (Aspirin) 81 Mg Tablet 81 MG PO DAILY (Reported) Atorvastatin Calcium (Atorvastatin Calcium) 10 Mg Tablet 40 MG PO HS Prescribed by: VIRGIE MOSS MD Clopidogrel (Clopidogrel) 75 Mg Tablet 75 MG PO DAILY Prescribed by: VIRGIE MOSS MD Lisinopril (Lisinopril) 5 Mg Tablet 5 MG PO DAILY Prescribed by: VIRGIE MOSS MD Metoprolol Succinate ER (Metoprolol Succinate ER) 25 Mg Tab.er.24h 25 MG PO BID Prescribed by: VIRGIE MOSS MD Spironolactone (Aldactone) 25 Mg Tablet 25 MG PO DAILY Prescribed by: VIRGIE MOSS MD Additional med instructions The medication metoprolol has been prescribed to control your episodes of rapid heart rate (supraventricular tachycardia). Plavix and baby aspirin have been prescribed due to your coronary artery disease. Your heart function is mildly reduced (congestive heart failure). The medications metoprolol, lisinopril and spironolactone have been prescribed because they are effective in the treatment of congestive heart failure. The hemoglobin A1c test of your diabetes is 7.2%. The goal is less than 7%. You should discuss medication for type II diabetes with your primary care physician. Followup Plan Follow-up plan The patient states that he has contacted her PCP and has an upcoming appointment in December. Refer to [facility] if not able to establish with new PCP. Discharge Diet: Heart Healthy, Diabetic Discharge Activity: No restrictions Patient Instructions You should contact the [facility] cardiology clinic for a follow-up appointment with Dr. Styles regarding your supraventricular tachycardia. You should see your primary care doctor within 1 week to follow-up changes in your medications and you need for further treatment for diabetes. Follow-up Provider: Deng Styles MD Follow-up with PCP in: 3 weeks Time spent 40 minutes copies to: Deng Styles MD, Jeffrey W MD Nov 13, 2016 11:59
== END 2016-11-13 13:16 | disposition home or self-care (01) | DRG 281 ==
LOC: SED 13:37 → OBSVTOIN 15:43 → MPC 15:43 → PCC 11-11 18:02
PROVIDERS: ADMIT Internal Medicine; ATTEND Internal Medicine
PROC: B2161ZZ Fluoroscopy of Right and Left Heart using Low Osmolar Contrast (ICD-10-PCS; principal; 2016-11-13)
PROC: 4A023N7 Measurement of Cardiac Sampling and Pressure, Left Heart, Percutaneous Approach (ICD-10-PCS; 2016-11-13)
DX: I21.4 Non-ST elevation (NSTEMI) myocardial infarction (principal); I47.1 Supraventricular tachycardia; Z79.82 Long term (current) use of aspirin; Z87.891 Personal history of nicotine dependence; I10 Essential (primary) hypertension; E78.5 Hyperlipidemia, unspecified; I25.10 Atherosclerotic heart disease of native coronary artery without angina pectoris; I25.5 Ischemic cardiomyopathy; E11.9 Type 2 diabetes mellitus without complications; I50.9 Heart failure, unspecified